=== PATIENT | male | born 1980 | race Two or more races ===

== ENCOUNTER 2018-12-09 17:00 | Emergency (ER) | payer SELFPAY ==
[~2018-12-09] VITALS: Ht 170.2 cm; Wt 122.5 kg
[2018-12-09 17:55] LABS: Urine Bacteria FEW /hpf (None Seen); Urine Blood Negative /uL (Negative); Urine Hyaline Cast FEW /lpf (0 - 2); Urine Mucus FEW (None Seen); Urine Specific Gravity 1.026 (1.001-1.035); Urine WBC 3 /hpf (0 - 3)
[2018-12-09 18:13] LABS: Basophils # (auto) 0.1 uL; Basophils % (auto) 1.1 % (0.0-2.0); Eosinophils # (auto) 0.1 uL; Eosinophils % (auto) 0.6 % (0.0-7.0); Hemoglobin 14.7 g/dL (13.5-17.5); Lymphocytes # (auto) 2.5 uL; Lymphocytes % (auto) 26.3 % (10.0-50.0); Mean Corpuscular Hemoglobin 30.3 pg (28.0-32.0); Mean Corpuscular Hgb Conc. 32.7 g/dL (32.0-36.0); Mean Corpuscular Volume 92.6 fL (80.0-100.0); Monocytes # (auto) 0.6 uL; Monocytes % (auto) 6.6 % (0.0-12.0); Neutrophils # (auto) 6.2 uL; Neutrophils % (auto) 65.4 % (37.0-80.0); Nucleated Red Blood Cells % 0.1 %; Platelet Count (auto) 207 10^3/uL (140-450); Red Blood Cells 4.86 10^6/uL (4.5-5.90); Red Cell Distribution Width 15.2 % (11.8-14.3); White Blood Cell 9.5 10^3/uL (4.4-10.8)
[2018-12-09 19:07] LABS: Barbiturate Scree,Urine NEGATIVE (NEGATIVE); Cannabinoid Screen, Urine NEGATIVE (NEGATIVE)
[2018-12-09 19:10] LABS: Alcohol, Urine < 3.0 mg/dL (0-5); Amphetamine Screen, Urine NEGATIVE (NEGATIVE); Benzodiazephine Screen, Urine NEGATIVE (NEGATIVE); Cocaine Screen, Urine NEGATIVE (NEGATIVE); Opiate Scree,Urine NEGATIVE (NEGATIVE); Phencyclidine Screen, Urine NEGATIVE (NEGATIVE)
[2018-12-09 19:29] LABS: Albumin 3.3 g/dL (3.4-5.0); Calcium 8.2 mg/dL (8.5-10.1); Potassium 3.7 mmol/L (3.5-5.1)
[2018-12-09 19:33] LABS: BUN/Creatinine Ratio 11.9; Bilirubin, Total 0.7 mg/dL (0.2-1.0); Total Protein 6.5 g/dL (6.4-8.2)
[2018-12-09 19:50] VITALS: BP 111/86
== END 2018-12-09 21:11 | disposition home or self-care (01) ==
LOC: ER 17:00
DX: K52.9 Noninfective gastroenteritis and colitis, unspecified (principal); F17.210 Nicotine dependence, cigarettes, uncomplicated
CPT/HCPCS: 36415; 74176; 80053; 80307; 81001; 83605; 83690; 85025

== ENCOUNTER 2018-12-17 20:20 | Inpatient (IN) | payer SELFPAY ==
[~2018-12-17] VITALS: Ht 170.2 cm; Wt 106.9 kg
[2018-12-17 21:28] LABS: Basophils # (auto) 0 uL; Basophils % (auto) 0.6 % (0.0-2.0); Eosinophils # (auto) 0 uL; Eosinophils % (auto) 0.5 % (0.0-7.0); Hematocrit 45.4 % (41.0-53.0); Hemoglobin 14.7 g/dL (13.5-17.5); Lymphocytes # (auto) 1.7 uL; Lymphocytes % (auto) 21.8 % (10.0-50.0); Mean Corpuscular Hemoglobin 30.3 pg (28.0-32.0); Mean Corpuscular Hgb Conc. 32.3 g/dL (32.0-36.0); Monocytes # (auto) 0.6 uL; Monocytes % (auto) 8.2 % (0.0-12.0); Neutrophils # (auto) 5.3 uL; Neutrophils % (auto) 68.9 % (37.0-80.0); Nucleated Red Blood Cells % 0.1 %; Platelet Count (auto) 196 10^3/uL (140-450); Red Blood Cells 4.83 10^6/uL (4.5-5.90); Red Cell Distribution Width 16.2 % (11.8-14.3); White Blood Cell 7.7 10^3/uL (4.4-10.8)
[2018-12-17 21:46] LABS: Alanine Aminotransferase 36 U/L (16-61); Amylase 28 U/L (25-115); Anion Gap 11 (5-15); Aspartate Aminotransferase 16 U/L (15-37); BUN/Creatinine Ratio 13.8; Blood Urea Nitrogen 17 mg/dL (7-18); Calcium 8.3 mg/dL (8.5-10.1); Carbon Dioxide 22 mmol/L (21-32); Chloride 111 mmol/L (98-107); GFR African American 85 mL/min; GFR Non-African American 70 mL/min; Glucose 100 mg/dL (74-106); Lipase 117 U/L (73-393); Potassium 3.9 mmol/L (3.5-5.1); Sodium 144 mmol/L (136-145)
[2018-12-17 21:48] LABS: Alkaline Phosphatase 66 U/L (45-117); Bilirubin, Total 0.8 mg/dL (0.2-1.0); Total Protein 6.1 g/dL (6.4-8.2)
[2018-12-18] MEDS ORDERED: SODIUM CHLORIDE 0.9% 1,000 ML IV ONE (07:36)
[2018-12-18] MEDS ORDERED: MORPHINE SULFATE 4 MG/ML SYR/VIAL IV PRN (07:45)
[2018-12-18] MEDS ORDERED: FUROSEMIDE 40 MG/4 ML VIAL IV ONE (07:45)
[2018-12-18 08:40] LABS: Magnesium 2.5 mg/dL (1.6-2.6)
[2018-12-18] MEDS ORDERED: ENALAPRIL MALEATE 2.5 MG TAB PO ONE (11:00)
[2018-12-18] MEDS ORDERED: ACETAMINOPHEN 500 MG TAB PO PRN (11:00)
[2018-12-18] MEDS ORDERED: MORPHINE SULF INJ 2 MG/ML SYRINGE 1ML IV PRN (11:00)
[2018-12-18] MEDS ORDERED: ONDANSETRON HCL 4 MG/2 ML VIAL IV PRN (11:00)
[2018-12-18] MEDS ORDERED: NITROGLYCERIN 0.4 MG SL TAB SL PRN (11:00)
[2018-12-18] MEDS ORDERED: HYDROcodone-ACET 5/325MG TAB PO PRN (11:00)
[2018-12-18] MEDS: CARVEDILOL 3.125 MG TAB PO SCH ×3 (11:48→22:02)
--- NOTE | 2018-12-18 12:00 | NUR ---
Patient arrival Patient is A & O x4, no s/s of distress at this time. He is on tele box 45, BP: 118/93; HR 115: O2 sat: 94%; RR 20; Temp: 97.9; Pain 9 in upper left quadrant of abdomen. Patient takes no home medications. Oriented patient to the room, call light and when to call for assistance. Patient is ambulatory and stable on his feet. Will continue to monitor Q1h and PRN.
--- NOTE | 2018-12-18 12:08 | NUR ---
Yoselyn Maxwell JANITORIAL MAINTENANCE WORKER at bedside. Received orders, read back and verified. Will medicate patient per orders.
[2018-12-18 12:31] LABS: Alcohol, Urine < 3.0 mg/dL (0-5); Amphetamine Screen, Urine NEGATIVE (NEGATIVE); Barbiturate Scree,Urine NEGATIVE (NEGATIVE); Benzodiazephine Screen, Urine NEGATIVE (NEGATIVE); Cannabinoid Screen, Urine NEGATIVE (NEGATIVE); Cocaine Screen, Urine NEGATIVE (NEGATIVE); Opiate Scree,Urine POSITIVE (NEGATIVE); Phencyclidine Screen, Urine NEGATIVE (NEGATIVE)
[2018-12-18 12:33] LABS: Urine Bacteria NONE SEEN /hpf (None Seen); Urine Blood Negative /uL (Negative); Urine Mucus FEW (None Seen); Urine Specific Gravity 1.024 (1.001-1.035); Urine WBC 1 /hpf (0 - 3)
[2018-12-18] MEDS: MORPHINE SULF INJ 2 MG/ML SYRINGE 1ML IV PRN ×2 (13:46→22:03)
[2018-12-18] MEDS ORDERED: OPTISON 3ml Vial for INJ IV ONE (14:06)
[2018-12-18 17:18] VITALS: BP 121/75
[2018-12-18] MEDS: FUROSEMIDE 40 MG/4 ML VIAL IV SCH (18:09)
--- NOTE | 2018-12-18 19:40 | NUR ---
RECEIVED PATIENT FROM DAY SHIFT RN. PATIENT RESTING IN BED. NO S/S OF DISTRESS NOTED. DENIED PAIN FOR NOW. REINFORCED PATIENT ON FLUID RESTRICTION 1200ML/DAY, PATIENT VERBALIZED UNDERSTANDING. POC INSTRUCTED AND ENCOURAGED PATIENT TO CALL FOR TRANSITION RN IF NEEDED. BED IN LOWEST POSITION WITH SIDE RAILS UP X 2. CALL PUGA WITHIN REACH. CONTINUE TO MONITOR FOR CHANGES Q1H AND PRN.
--- NOTE | 2018-12-18 20:22 | NUR ---
PATIENT'S SISTER IN LOW CALLED TO ASK PATIENT'S CURRENT SITUATION, THE PASSWORD PROVIDED BY FAMILY WAS WRONG. NO INFO RELEASED OUT. PATIENT AWARE. CONTINUE TO MONITOR.
[2018-12-18 22:00] VITALS: BP 100/69
[2018-12-18] MEDS: ATORVASTATIN 20 MG TAB PO SCH (22:02)
[2018-12-18] MEDS: ENOXAPARIN SOD 150 MG/1 ML SYRINGE SC SCH (22:03)
--- NOTE | 2018-12-18 22:03 | NUR ---
PATIENT C/O PAIN @ 01/18 AROUND RUQ ABDOMEN. MEDICATED PATIENT ORDERED. CONTINUE TO MONITOR.
--- NOTE | 2018-12-19 00:17 | NUR ---
REINFORCED PATIENT NPO FROM NOW FOR POSSIBLE PROCEDURE LATER TODAY. PATIENT VERBALIZED UNDERSTANDING. CONTINUE TO MONITOR.
--- NOTE | 2018-12-19 03:17 | NUR ---
PATIENT SLEEPING. NO S/S OF DISTRESS NOTED. CONTINUE CARE.
[2018-12-19 05:00] VITALS: BP 105/78
[2018-12-19] MEDS: FUROSEMIDE 40 MG/4 ML VIAL IV SCH ×2 (06:25→18:07)
--- NOTE | 2018-12-19 06:25 | NUR ---
REINFORCED PATIENT NPO NOW. PATIENT VERBALIZED UNDERSTANDING. CONTINUE CARE.
[2018-12-19 06:54] LABS: Cholesterol 103 mg/dL (< 200); Triglycerides 56 mg/dL (< 150)
[2018-12-19 06:56] LABS: HDL Cholesterol 31 mg/dL (40-59); LDL Cholesterol 72 mg/dL (< 100)
[2018-12-19 08:33] VITALS: BP 118/84
--- NOTE | 2018-12-19 09:24 | NUR ---
STRESS TEST ORDER CANCELLED, CALLED NUCLEAR MEDICINE TO CONFIRM. PATIENT GIVEN BREAKFAST TRAY. WILL CONTINUE CARE.
[2018-12-19] MEDS: POTASSIUM CHL 20 Meq TABLET PO SCH (09:57)
[2018-12-19] MEDS: ASPirin-EC 81 mg tab PO SCH (09:57)
[2018-12-19] MEDS: FAMOTIDINE 20 MG TAB PO SCH (09:57)
[2018-12-19] MEDS: ENALAPRIL MALEATE 2.5 MG TAB PO SCH (09:58)
[2018-12-19] MEDS: CARVEDILOL 3.125 MG TAB PO SCH ×2 (09:58→22:17)
[2018-12-19] MEDS: ENOXAPARIN SOD 150 MG/1 ML SYRINGE SC SCH ×2 (09:59→22:17)
[2018-12-19] MEDS ORDERED: FUROSEMIDE 20 MG/2 ML VIAL IV SCH (10:00)
[2018-12-19 12:28] VITALS: BP 109/73
[2018-12-19 16:49] VITALS: BP 111/62
[2018-12-19] MEDS ORDERED: DEXTROSE (50%) 50ML SYRG IV PRN (17:15)
[2018-12-19] MEDS ORDERED: SODIUM CHLORIDE 0.9% 1,000 ML IV SCH (17:55)
--- NOTE | 2018-12-19 19:14 | NUR ---
CLOSING NOTE ENDORSED CARE TO PLASTIC BOAT BUFFER RN. RN AWARE OF PENDING PROCEDURE TOMORROW. FAMILY AT BEDSIDE. BED IN LOW LOCK POSITION, CALL LIGHT IN REACH. NO S/S OF DISTRESS.
--- NOTE | 2018-12-19 19:35 | NUR ---
RECEIVED PATIENT FROM DAY SHIFT RN. PATIENT RESTING IN BED. NO S/S OF DISTRESS NOTED. C/O PAIN @ 5/10 ON HIS RIGHT UPPER ABDOMEN. PATIENT WOULD LIKE TO HAVE PAIN MEDICATION LATER. REINFORCED PATIENT ON FLUID RESTRICTION 1200ML/DAY, AND NPO AFTER MIDNIGHT FOR PROCEDURE TOMORROW. PATIENT VERBALIZED UNDERSTANDING. POC INSTRUCTED AND ENCOURAGED PATIENT TO CALL FOR ELECTRONIC LAB TECHNICIAN IF NEEDED. BED IN LOWEST POSITION WITH SIDE RAILS UP X 2. CALL PUGA WITHIN REACH. CONTINUE TO MONITOR FOR CHANGES Q1H AND PRN.
[2018-12-19] MEDS: MORPHINE SULF INJ 2 MG/ML SYRINGE 1ML IV PRN (20:43)
--- NOTE | 2018-12-19 20:43 | NUR ---
PATIENT REQUESTED TO HAVE PAIN MEDICATION FOR PAIN @ 12/18. REASSESSED BP 105/67, HR 96. MEDICATED PATIENT ORDERED. CONTINUE TO MONITOR.
[2018-12-19 22:00] VITALS: BP 126/62
[2018-12-19] MEDS: InsuLIN REG 1unit/0.01ml Soln (100units/ml) SC SCH (22:00)
[2018-12-19] MEDS: ATORVASTATIN 20 MG TAB PO SCH (22:17)
[2018-12-19] MEDS: ACCU-CHEK COMFORT CURVE STRIP VI SCH (22:18)
--- NOTE | 2018-12-19 22:22 | NUR ---
ACCU-CHECK,BS 100. NO COVERAGE. CONTINUE TO MONITOR.
[2018-12-20] VITALS (7 sets, daily range): BP systolic 103–121; BP diastolic 67–91
--- NOTE | 2018-12-20 03:30 | NUR ---
PATIENT SLEEPING. NO S/S OF DISTRESS NOTED. CONTINUE CARE.
[2018-12-20] MEDS: InsuLIN REG 1unit/0.01ml Soln (100units/ml) SC SCH ×4 (06:29→21:53)
[2018-12-20] MEDS: ACCU-CHEK COMFORT CURVE STRIP VI SCH ×4 (06:29→21:53)
[2018-12-20] MEDS: FUROSEMIDE 40 MG/4 ML VIAL IV SCH ×2 (06:29→18:04)
[2018-12-20] MEDS: SODIUM CHLORIDE 0.9% 1,000 ML IV SCH ×4 (06:29→23:28)
--- NOTE | 2018-12-20 06:30 | NUR ---
ACCU-CHECK,BS 91. NO COVERAGE. CONTINUE TO MONITOR.
[2018-12-20 06:32] LABS: Basophils # (auto) 0.1 uL; Basophils % (auto) 1.1 % (0.0-2.0); Eosinophils # (auto) 0 uL; Eosinophils % (auto) 0.3 % (0.0-7.0); Hematocrit 42.9 % (41.0-53.0); Lymphocytes # (auto) 2.6 uL; Lymphocytes % (auto) 38.9 % (10.0-50.0); Mean Corpuscular Hemoglobin 30.8 pg (28.0-32.0); Mean Corpuscular Hgb Conc. 32.7 g/dL (32.0-36.0); Mean Corpuscular Volume 94.4 fL (80.0-100.0); Monocytes # (auto) 0.6 uL; Monocytes % (auto) 8.3 % (0.0-12.0); Neutrophils # (auto) 3.5 uL; Neutrophils % (auto) 51.4 % (37.0-80.0); Nucleated Red Blood Cells % 0.2 %; Platelet Count (auto) 167 10^3/uL (140-450); Red Blood Cells 4.55 10^6/uL (4.5-5.90); Red Cell Distribution Width 15.8 % (11.8-14.3); White Blood Cell 6.8 10^3/uL (4.4-10.8)
[2018-12-20 06:43] LABS: INR 1.25 (0.9-1.15); Partial Thromboplastin Time 35.6 sec (23.64-32.05)
[2018-12-20 06:56] LABS: BUN/Creatinine Ratio 20.9; Calcium 8.2 mg/dL (8.5-10.1); Magnesium 2.2 mg/dL (1.6-2.6); Potassium 3.8 mmol/L (3.5-5.1)
--- NOTE | 2018-12-20 08:10 | NUR ---
PATIENT TAKEN TO MEDICAL IMAGING DIRECTOR NO S/S OF DISTRESS.
[2018-12-20] MEDS ORDERED: HEPARIN IN NS 1000Units/500mL 0 ML ONE (09:06)
[2018-12-20] MEDS ORDERED: LIDOCAINE 2%HCL (LOCAL ANESTH.) INJ 20ML MDV ONE ×2 (09:06→10:26)
[2018-12-20] MEDS ORDERED: IOHEXOL 350 MG/ML 100ML IJ ONE (09:06)
[2018-12-20] MEDS: FAMOTIDINE 20 MG TAB PO SCH (10:00)
[2018-12-20] MEDS: ASPirin-EC 81 mg tab PO SCH (10:00)
[2018-12-20] MEDS: ENOXAPARIN SOD 150 MG/1 ML SYRINGE SC SCH ×2 (10:00→21:53)
[2018-12-20] MEDS: POTASSIUM CHL 20 Meq TABLET PO SCH (10:00)
[2018-12-20] MEDS: CARVEDILOL 3.125 MG TAB PO SCH ×2 (10:00→21:53)
[2018-12-20] MEDS: ENALAPRIL MALEATE 2.5 MG TAB PO SCH (10:00)
[2018-12-20] MEDS ORDERED: MIDAZOLAM HCL 1MG/1ML-2 ML VIAL ONE (10:26)
[2018-12-20] MEDS ORDERED: fentaNYL CITRATE 100 MCG/2 ML VL ONE (10:26)
[2018-12-20] MEDS ORDERED: ANGIOMAX 250 MG VIAL IV ONE ×2 (10:26→12:14)
[2018-12-20] MEDS ORDERED: SODIUM CHL 0.9% 0 ML ONE (10:26)
--- NOTE | 2018-12-20 13:10 | NUR ---
PATIENT BACK TO FLOOR. DRESSING TO RIGHT GROIN CLEAN, DRY, INTACT, SOFT TO PALPATION. PATIENT TO LAY FLAT UNTIL 1400 PER GRANULATOR. PATIENT AND FAMILY AWARE. VERBALIZED UNDERSTANDING. FAMILY AT BEDSIDE. WILL CONTINUE CARE.
--- NOTE | 2018-12-20 13:24 | NUR ---
[facility]ovi packet sent to [employer]. Contacted Nannette Quintanilla and Nannette Iraheta (ss) to see where we are at in getting pt insurance, had to leave message, await call back
--- NOTE | 2018-12-20 13:30 | NUR ---
[facility] ph # is [phone]
--- NOTE | 2018-12-20 19:35 | NUR ---
CLOSING NOTE ENDORSED CARE TO POLICE LIAISON OFFICER RN. DRESSING TO RIGHT GROIN CLEAN DRY AND INTACT. BED IN LOW LOCK POSITION, CALL LIGHT IN REACH. NO S/S OF DISTRESS.
[2018-12-20] MEDS: ATORVASTATIN 20 MG TAB PO SCH (21:52)
[2018-12-21] VITALS (7 sets, daily range): BP systolic 100–112; BP diastolic 58–88
[2018-12-21] MEDS: FUROSEMIDE 40 MG/4 ML VIAL IV SCH ×2 (06:06→17:55)
[2018-12-21] MEDS: InsuLIN REG 1unit/0.01ml Soln (100units/ml) SC SCH ×4 (06:07→21:27)
[2018-12-21] MEDS: ACCU-CHEK COMFORT CURVE STRIP VI SCH ×4 (06:52→21:26)
[2018-12-21] MEDS: SODIUM CHLORIDE 0.9% 1,000 ML IV SCH ×2 (06:56→14:15)
--- NOTE | 2018-12-21 07:30 | NUR ---
Opening Shift Note RECEIVED REPORT FROM NOC RN. Assumed care of patient, awake and alert. No S/S of distress/SOB or pain. BED IN LOWEST, LOCKED POSITION WITH SIDERAILS UP x2. Instructed on POC and to call for assist PRN, will continue to monitor for changes Q1hr and PRN.
[2018-12-21 08:59] LABS: Calcium 8.4 mg/dL (8.5-10.1); Potassium 3.3 mmol/L (3.5-5.1)
[2018-12-21 10:02] LABS: BUN/Creatinine Ratio 18.4
[2018-12-21] MEDS: FAMOTIDINE 20 MG TAB PO SCH (10:34)
[2018-12-21] MEDS: ENOXAPARIN SOD 150 MG/1 ML SYRINGE SC SCH ×2 (10:34→21:23)
[2018-12-21] MEDS: ASPirin-EC 81 mg tab PO SCH (10:34)
[2018-12-21] MEDS: POTASSIUM CHL 20 Meq TABLET PO SCH (10:34)
[2018-12-21] MEDS: CARVEDILOL 3.125 MG TAB PO SCH ×2 (10:35→21:21)
[2018-12-21] MEDS: ENALAPRIL MALEATE 2.5 MG TAB PO SCH (10:35)
--- NOTE | 2018-12-21 12:46 | NUR ---
Nutrition Assessment Notes please see attached link for complete assessment Est. Needs ABW [id number] kcal (17-20 kcal/kgABW), 97-106 gms pro (1.0-1.1 gms/kgBW). Will continue to monitor pertinent labs and reassess nutrient need prn Addendum: 12/21/18 at [address] Amended: Links added.
[2018-12-21] MEDS: HYDROcodone-ACET 5/325MG TAB PO PRN (17:05)
--- NOTE | 2018-12-21 19:30 | NUR ---
Patient in bed alert and oriented x 4, verbally coherent, able to make needs known. Patient denies pain and discomfort at this time. Plan of care discussed, patient verbalized understanding. All needs attended, will continue to monitor.
[2018-12-21] MEDS: ATORVASTATIN 20 MG TAB PO SCH (21:18)
--- NOTE | 2018-12-21 21:28 | NUR ---
PATIENT'S BLOOD SUGAR LEVEL 149MG/DL. PATIENT REFUSED INSULIN, STATED HE JUST HAD SANDWICH AND JUICE. WILL CONTINUE TO MONITOR.
[2018-12-22] MEDS: SODIUM CHLORIDE 0.9% 1,000 ML IV SCH (04:33)
[2018-12-22 05:03] VITALS: BP 108/64
[2018-12-22] MEDS: FUROSEMIDE 40 MG/4 ML VIAL IV SCH ×2 (05:12→18:00)
[2018-12-22] MEDS: ACCU-CHEK COMFORT CURVE STRIP VI SCH ×4 (06:33→22:24)
[2018-12-22] MEDS: InsuLIN REG 1unit/0.01ml Soln (100units/ml) SC SCH ×4 (06:33→22:00)
[2018-12-22] MEDS: HYDROcodone-ACET 5/325MG TAB PO PRN (06:55)
--- NOTE | 2018-12-22 07:30 | NUR ---
OPENING SHIFT NOTE: Received report from NOC RNLizzeth. Assumed care of patient. Patient is resting in bed, denies pain. Bed is in lowest position, rails x2 up and call light within reach. Updated on plan of care. Will continue to monitor.
[2018-12-22 09:00] VITALS: BP 100/50
[2018-12-22] MEDS: ENALAPRIL MALEATE 2.5 MG TAB PO SCH (10:00)
[2018-12-22] MEDS: CARVEDILOL 3.125 MG TAB PO SCH ×2 (10:00→22:00)
[2018-12-22 10:14] LABS: Anion Gap 8 (5-15); Carbon Dioxide 28 mmol/L (21-32); Chloride 106 mmol/L (98-107); Potassium 3.3 mmol/L (3.5-5.1); Sodium 142 mmol/L (136-145)
[2018-12-22 10:15] LABS: BUN/Creatinine Ratio 19.1; Blood Urea Nitrogen 21 mg/dL (7-18); Calcium 8.3 mg/dL (8.5-10.1); GFR African American 96 mL/min; GFR Non-African American 80 mL/min; Glucose 105 mg/dL (74-106); Magnesium 2.2 mg/dL (1.6-2.6)
[2018-12-22] MEDS: FAMOTIDINE 20 MG TAB PO SCH (10:30)
[2018-12-22] MEDS: POTASSIUM CHL 20 Meq TABLET PO SCH ×2 (10:30→22:22)
[2018-12-22] MEDS: ASPirin-EC 81 mg tab PO SCH (10:31)
[2018-12-22] MEDS: ENOXAPARIN SOD 150 MG/1 ML SYRINGE SC SCH ×2 (10:31→22:22)
[2018-12-22] MEDS ORDERED: POTASSIUM CHL 20 Meq TABLET PO ONE (12:45)
--- NOTE | 2018-12-22 12:52 | NUR ---
MD: T/C from Dr Sebastian. Updated MD on consult. Orders received.
[2018-12-22] MEDS ORDERED: GASTROGRAFIN 120 ML SOL ONE (12:54)
[2018-12-22 12:56] VITALS: BP 97/75
--- NOTE | 2018-12-22 13:10 | NUR ---
MD: Paged Dr Sebastian for clarification of small bowel order to see if can be done tomorrow morning due to limited radiology staff this evening.
--- NOTE | 2018-12-22 13:35 | NUR ---
ALLERGIC REACTION: Notified by patient that his lower lip began to swell after eating lunch. Patient states he does have an allergy to dairy. Patient ate a tuna sandwhich. Patient able to breath find, no distress and is requesting benedryl. Dr Shaikh bond for orders.
[2018-12-22] MEDS ORDERED: diphenhdrAMINE HCL 50 MG/1 ML VL IV PRN (13:45)
[2018-12-22 17:00] VITALS: BP 112/79
--- NOTE | 2018-12-22 19:38 | NUR ---
CLOSING SHIFT NOTE: Report given to NOC RNShyann. Endorsed care of patient.
--- NOTE | 2018-12-22 19:45 | NUR ---
Opening Shift Note Assumed care of patient, awake and alert. No S/S of distress/SOB or pain. Family at bedside. Updated on POC and to be NPO after MN. For Small Bowel series tomorrow, patient verbalized understanding. Instructed to call for assist PRN, will continue to monitor for changes Q1hr and PRN.
[2018-12-22 22:00] VITALS: BP 99/83
[2018-12-22] MEDS: ATORVASTATIN 20 MG TAB PO SCH (22:21)
[2018-12-23 05:00] VITALS: BP 103/68
--- NOTE | 2018-12-23 05:32 | NUR ---
IV on LH not flushing, removed with catheter intact, patient tolerated well IV insertion IV access obtained, via clean sterile technique by inserting 22 gauge catheter at . IV secured properly. No trauma to site. Patient tolerated well. NOTE: []
[2018-12-23 05:39] LABS: Calcium 8.6 mg/dL (8.5-10.1); Potassium 3.6 mmol/L (3.5-5.1)
[2018-12-23] MEDS: FUROSEMIDE 40 MG/4 ML VIAL IV SCH ×2 (06:30→18:12)
[2018-12-23] MEDS: InsuLIN REG 1unit/0.01ml Soln (100units/ml) SC SCH ×3 (06:30→17:00)
[2018-12-23] MEDS: ACCU-CHEK COMFORT CURVE STRIP VI SCH ×3 (06:30→18:12)
--- NOTE | 2018-12-23 07:30 | NUR ---
Opening Shift Note Assumed care of patient, resting in bed with eyes closed, awoke by name. No S/S of distress/SOB, no pain noted or reported at this time. Respirations are even and unlabored on RA. Updated on POC and instructed to call for assistance as needed, pt. verbalized understanding. Bed locked in lowest position, side rails up x2, call light within reach. Will continue to monitor for changes Q1hr and PRN.
[2018-12-23] MEDS ORDERED: GASTROGRAFIN 120 ML SOL ONE (08:07)
[2018-12-23 08:50] VITALS: BP 95/69
[2018-12-23 09:24] LABS: Hepatitis B Surface Antibody Negative
[2018-12-23 09:56] LABS: Hepatitis A Total Antibody Positive
[2018-12-23] MEDS: CARVEDILOL 3.125 MG TAB PO SCH (10:00)
[2018-12-23] MEDS: ENALAPRIL MALEATE 2.5 MG TAB PO SCH (10:00)
[2018-12-23] MEDS: HYDROcodone-ACET 5/325MG TAB PO PRN (11:16)
[2018-12-23] MEDS: POTASSIUM CHL 20 Meq TABLET PO SCH (11:19)
[2018-12-23] MEDS: ENOXAPARIN SOD 150 MG/1 ML SYRINGE SC SCH (11:19)
[2018-12-23] MEDS: ASPirin-EC 81 mg tab PO SCH (11:19)
[2018-12-23] MEDS: FAMOTIDINE 20 MG TAB PO SCH (11:19)
[2018-12-23] MEDS ORDERED: APIX5TAB PO (11:32)
[2018-12-23] MEDS ORDERED: FURO40TA PO (11:32)
[2018-12-23] MEDS ORDERED: PANT40TA2 PO (11:32)
[2018-12-23] MEDS ORDERED: CAR3125T PO (11:32)
[2018-12-23] MEDS ORDERED: POTA20TA53 PO (11:32)
[2018-12-23] MEDS ORDERED: ENA2.5T PO (11:32)
[2018-12-23] MEDS ORDERED: ATOR10TA PO (11:32)
[2018-12-23] MEDS ORDERED: METF-370 PO (11:38)
[2018-12-23 12:44] VITALS: BP 110/89
[2018-12-23 14:07] LABS: Hepatitis B Surface Antigen Negative (Negative)
[2018-12-23 14:08] LABS: Hepatitis C Antibody Negative (Negative)
[2018-12-23 15:40] VITALS: BP 110/89
[2018-12-23 17:13] VITALS: BP 110/61
--- NOTE | 2018-12-23 19:15 | NUR ---
Discharge instructions given as ordered. Encourage to follow up with PCP as instructed. All questions and concerns addressed. Patient verbalized understanding. Medication reconciliation form completed and copy given to patient. IV removed with catheter intact, pressure dressing applied. Telemetry unit returned to [facility]. Patient still in room visiting his , all personal belongings with patient. No distress noted at time of departure.
== END 2018-12-23 19:15 | disposition home or self-care (01) | DRG 280 ==
LOC: ER 20:22 → TELE-WESTW 20:23
PROVIDERS: ADMIT Nurse Practitioner Acute Care; ATTEND Internal Medicine
PROC: 4A023N7 Measurement of Cardiac Sampling and Pressure, Left Heart, Percutaneous Approach (ICD-10-PCS; principal; 2018-12-20)
PROC: B2111ZZ Fluoroscopy of Multiple Coronary Arteries using Low Osmolar Contrast (ICD-10-PCS; 2018-12-20)
PROC: B2151ZZ Fluoroscopy of Left Heart using Low Osmolar Contrast (ICD-10-PCS; 2018-12-20)
DX: I21.A1 Myocardial infarction type 2 (principal); I50.43 Acute on chronic combined systolic (congestive) and diastolic (congestive) heart failure; E44.0 Moderate protein-calorie malnutrition; J98.11 Atelectasis; I42.0 Dilated cardiomyopathy; I11.0 Hypertensive heart disease with heart failure; E11.9 Type 2 diabetes mellitus without complications; E66.01 Morbid (severe) obesity due to excess calories; E78.5 Hyperlipidemia, unspecified; F15.90 Other stimulant use, unspecified, uncomplicated; F17.210 Nicotine dependence, cigarettes, uncomplicated; I34.0 Nonrheumatic mitral (valve) insufficiency; I25.10 Atherosclerotic heart disease of native coronary artery without angina pectoris; I27.20 Pulmonary hypertension, unspecified; Q53.20 Undescended testicle, unspecified, bilateral; Z79.899 Other long term (current) drug therapy; Z82.49 Family history of ischemic heart disease and other diseases of the circulatory system; Z83.3 Family history of diabetes mellitus; Z79.82 Long term (current) use of aspirin; Z68.36 Body mass index [BMI] 36.0-36.9, adult
CPT/HCPCS: 36415; 71045; 74176; 74250; 80048; 80053; 80061; 80307; 81001; 82150; 82962; 83036; 83690; 83735; 83880; 84443; 84484; 85025; 85379; 85610; 85730; 86141; 86704; 86706; 86708; 86803; 86850; 86900; 86901; 87340; 93005; 93306; 96361; 96374; 96375; 96376; 99152; C1751; G0378; J1815; J2250; Q9956